=== PATIENT | female | born 1950 | race Caucasian/White ===

== ENCOUNTER 2018-03-31 18:44 | Outpatient (CLI) | payer OTHER | END 2018-03-31 18:45 | disposition short-term general hospital (02) | LOC: EMS 18:44 | PROVIDERS: ATTEND Surgery | DX: R10.9 Unspecified abdominal pain (principal) | CPT/HCPCS: A0425; A0427 ==

== ENCOUNTER 2018-06-07 10:18 | Outpatient (CLI) | payer OTHER ==
--- NOTE | 2018-06-07 12:23 | XRAY Report ---
Reason: PULMONARY NODULES NOTED ON LAST CT Procedure Date: 06/07/2018 Accession Number: [id number] / [id number] Procedure: XRN - Chest 2 View X-Ray CPT Code: 07216 FULL RESULT: EXAM: CHEST RADIOGRAPHY EXAM DATE: 06/07/2018 10:51 AM. CLINICAL HISTORY: Pulmonary nodules noted on last CT. COMPARISON: None. TECHNIQUE: 2 views. FINDINGS: Lungs/Pleura: No focal opacities evident. No pleural effusion. No pneumothorax. Normal volumes. Mediastinum: Heart and mediastinal contours are unremarkable. Other: None. IMPRESSION: The nodules identified by CT are not definitely seen on plain radiograph. Recommendation: General recommendations for nodules incidentally discovered on CT are as follows: Fleischner Society Recommendations 2017 MacMahon et al. Radiology 2017 Solid Nodules-Low Risk Patients: <6 mm (single or multiple) - No routine follow-up* 6-8 mm (single) -CT at 6-12 months, then consider CT at 18-24 months 6-8mm (multiple) -CT at 3-6 months, then consider at CT 18-24 months >8 mm (single) -Consider CT, PET/CT, or tissue sampling at 3 months >8 mm (multiple) -CT at 3-6 months, then consider CT at 18-24 months Solid Nodules-High Risk Patients: <6 mm (single or multiple) -Optional CT at 12 months* 6-8 mm (single) -CT at 6-12 months, then CT at 18-24 months 6-8mm (multiple) -CT at 3-6 months, then CT at 18-24 months >8 mm (single) -Consider CT, PET/CT, or tissue sampling at 3 months >8 mm (multiple) -CT at 3-6 months, then at 18-24 months *Nodules < 6mm do not require routine follow-up, but suspicious nodule morphology, upper lobe location, or both may warrant 12 month follow-up Subsolid nodules: <6 mm (single, GG or part solid) -No routine follow-up >=6 mm (single GG) -CT at 6-12 months to confirm, then CT q2 years until 5 years >=6 mm (single part solid) -CT at 3-6 months to confirm, if unchanged and solid <6mm, annual CT for 5 years <6 mm (multiple GG or part solid) -CT at 3-6 months. If stable, consider CT at 2 and 4 years >=6 mm (multiple GG or part solid) -CT at 3-6 months. Subsequent management based on most suspicious nodule(s). Consider follow-up at 2 and 4 years for certain suspicious nodules <6mm. If solid component develops or growth, consider resection. RADIA
== END 2018-06-07 10:19 | disposition home or self-care (01) ==
LOC: DI.N 10:18
PROVIDERS: ATTEND Family Medicine
DX: R91.8 Other nonspecific abnormal finding of lung field (principal)
CPT/HCPCS: 71046

== ENCOUNTER 2018-08-30 07:35 | Outpatient (CLI) | payer OTHER | END 2018-08-30 07:36 | disposition home or self-care (01) | LOC: DI 07:35 | PROVIDERS: ATTEND Family Medicine | DX: I48.91 Unspecified atrial fibrillation (principal); I51.7 Cardiomegaly; I35.1 Nonrheumatic aortic (valve) insufficiency | CPT/HCPCS: 93306 ==

== ENCOUNTER 2019-02-07 09:40 | Outpatient (CLI) | payer OTHER ==
[~2019-02-07 09:40] MED LIST: IOVERSOL 320 100 ML VIAL IVP ONE; IOVERSOL 320 50 ML VIAL ONE
--- NOTE | 2019-02-08 14:50 | CT Report ---
Reason: ABDOMINAL PAIN, DARRHEA Procedure Date: 02/07/2019 Accession Number: [id number] / [id number] Procedure: CT - Abdomen/Pelvis WO CPT Code: Final Report FULL RESULT: EXAM: CT ABDOMEN AND PELVIS (CT KUB) EXAM DATE: 02/07/2019 12:11 PM. CLINICAL HISTORY: ABDOMINAL PAIN, DARRHEA. COMPARISONS: None. TECHNIQUE: Routine axial helical CT imaging was performed through the abdomen and pelvis without IV contrast. Reconstructions: Coronal and sagittal. In accordance with CT protocol optimization, one or more of the following dose reduction techniques were utilized for this exam: automated exposure control, adjustment of mA and/or KV based on patient size, or use of iterative reconstructive technique. FINDINGS: Lung Bases: Unremarkable. Right Kidney/Ureter: A 3 cm oval-shaped hypodense lesion in the inferior pole of right kidney, most consistent with simple cyst. No stones, hydronephrosis, or hydroureter. No perinephric fat stranding. Left Kidney/Ureter: No stones, hydronephrosis, or hydroureter. No perinephric fat stranding. Other Solid Organs: Noncontrast images of the solid organs are grossly unremarkable. Gallbladder/Bile Ducts: Post cholecystectomy with clips in GB fossa. Peritoneal Cavity: No free fluid, free air or stephanie adenopathy. Bowel is grossly unremarkable. Moderate colonic diverticulosis noted involving sigmoid colon. Appendix not well visualized. Pelvic Organs: No bladder stones or wall thickening. Noncontrast images of the visualized pelvic organs are unremarkable. Vasculature: Unremarkable. Other: None. IMPRESSION: No urinary tract stones or obstruction. A 3 cm simple cyst inferior pole of right kidney. No other acute abdominal pathology. RADIA
== END 2019-02-07 09:41 | disposition home or self-care (01) ==
LOC: DI 09:40
PROVIDERS: ATTEND Family Medicine
DX: R10.9 Unspecified abdominal pain (principal); R19.7 Diarrhea, unspecified; N28.1 Cyst of kidney, acquired
CPT/HCPCS: 74176

== ENCOUNTER 2019-05-02 05:15 | Emergency (ER) | payer OTHER ==
--- NOTE | 2019-05-02 05:20 | ED Physician Documentation ---
PD HPI CHEST PAIN - Stated complaint Stated Complaint: CP/SOA - History obtained from History obtained from: Patient - History of Present Illness Timing - onset: Enter time (22:30), Last night Timing - details: Gradual onset Pain level now: 0 Quality: Pressure Location: Substernal, Left chest Radiation: Other (does not radiate) Improved by: Nothing Worsened by: No: Exertion, Inspiration, Eating, Movement, Palpation, Position Associated symptoms: No: Shortness of air, Diaphoresis, Nausea, Vomiting, Feeling faint / dizzy, General Weakness, Palpitations, Cough Recently seen: Not recently seen Review of Systems Constitutional: reports: Reviewed and negative Cardiac: reports: Chest pain / pressure, Palpitations Respiratory: reports: Reviewed and negative GI: reports: Reviewed and negative : denies: Dysuria, Frequency PD PAST MEDICAL HISTORY - Past Medical History Past Medical History: Yes Cardiovascular: Atrial fibrillation - Present Medications Home Medications: Ambulatory Orders Medication Instructions Recorded Confirmed Albuterol Sulf [Ventolin Hfa 2 puffs Q4H PRN 05/02/19 05/02/19 Inhaler] Atorvastatin Calcium [Lipitor] 1 tab DAILY 05/02/19 05/02/19 Beclomethasone 80 Mcg [Qvar 80] 2 puffs BID 05/02/19 05/02/19 Duloxetine HCl 60 mg PO DAILY 05/02/19 05/02/19 Famotidine 1 tab BID 05/02/19 05/02/19 Furosemide 1 tab DAILY 05/02/19 05/02/19 Furosemide [Lasix] 20 mg PO DAILY #30 tablet 05/02/19 Gabapentin [Neurontin] 1 tab TID 05/02/19 05/02/19 Levothyroxine Sodium 1 tab DAILY 05/02/19 05/02/19 Lisinopril [Zestril] 1 tab BID 05/02/19 05/02/19 Magnesium Oxide 1 tab DAILY 05/02/19 05/02/19 Metoprolol Succinate 25 mg PO DAILY 05/02/19 05/02/19 Nitroglycerin 1 tab Q5M PRN 05/02/19 05/02/19 Potassium Chloride 10 meq PO DAILY PM #30 tablet.er 05/02/19 Prochlorperazine Maleate 1 tab Q8HR PRN 05/02/19 05/02/19 Rivaroxaban [Xarelto] 1 tab DAILY 05/02/19 05/02/19 cloNIDine [Catapres] 1 tab BID 05/02/19 05/02/19 metFORMIN [Glucophage] 1 tab BID 05/02/19 05/02/19 - Allergies Allergies/Adverse Reactions: Allergies Allergy/AdvReac Type Severity Reaction Status Date / Time codeine Allergy Unknown Verified 05/02/19 05:30 iodine Allergy Unknown Verified 05/02/19 05:31 PD ED PE NORMAL - Vitals Vital signs reviewed: Yes - General General: Alert and oriented X 3, No acute distress, Well developed/nourished - Neck Neck: Supple, no meningeal sign - Cardiac Cardiac: No murmur - Respiratory Respiratory: No respiratory distress - Abdomen Abdomen: Soft, Non tender - Derm Derm: Normal color, Warm and dry - Extremities Extremities: No edema PD ED PE EXPANDED - Cardiac Cardiac: Tachy, Irregularly irregular Results - Vitals Vitals: Oxygen O2 Source Room air Oxygen Flow Rate 2 - EKG (time done) No standard instances Rate: Rate (enter#) (138), Tachy Rhythm: Atrial fibrillation [place]: Normal Ischemia: Normal ST segments - Labs Labs: Laboratory Tests 05/02/19 05/02/19 05/02/19 05:28 05:28 05:28 WBC 9.3 RBC 3.78 L Hgb 10.8 L Hct 35.2 L MCV 93.1 MCH 28.6 MCHC 30.7 L RDW 15.0 Plt Count 374 MPV 10.2 Neut # (Auto) 7.4 H Lymph # (Auto) 1.3 L [place] # (Auto) 0.4 Eos # (Auto) 0.1 Baso # (Auto) 0.0 Absolute Nucleated RBC 0.00 Nucleated RBC % 0.0 Sodium 139 Potassium 4.4 Chloride 103 Carbon Dioxide 25 Anion Gap 11.0 BUN 14 Creatinine 1.0 Estimated GFR (MDRD) 55 L Glucose 147 H Calcium 8.9 Total Bilirubin 1.0 AST 26 ALT 29 Alkaline Phosphatase 96 Troponin I High Sens 15.2 H* B-Natriuretic Peptide Total Protein 7.8 Albumin 4.1 Globulin 3.7 Albumin/Globulin Ratio 1.1 Lipase 23 Urine Color Urine Clarity Urine pH Ur Specific [place] Urine Protein Urine Glucose (UA) Urine Ketones Urine Occult Blood Urine Nitrite Urine Bilirubin Urine Urobilinogen Ur Leukocyte Esterase Urine RBC Urine WBC Ur Squamous Epith Cells Urine Bacteria Ur Microscopic Review Urine Culture Comments 05/02/19 05/02/19 05/02/19 05:28 09:19 11:02 WBC RBC Hgb Hct MCV MCH MCHC RDW Plt Count MPV Neut # (Auto) Lymph # (Auto) [place] # (Auto) Eos # (Auto) Baso # (Auto) Absolute Nucleated RBC Nucleated RBC % Sodium Potassium Chloride Carbon Dioxide Anion Gap BUN Creatinine Estimated GFR (MDRD) Glucose Calcium Total Bilirubin AST ALT Alkaline Phosphatase Troponin I High Sens 13.9 B-Natriuretic Peptide 730 H Total Protein Albumin Globulin Albumin/Globulin Ratio Lipase Urine Color YELLOW Urine Clarity CLEAR Urine pH 6.5 Ur Specific [place] 1.025 Urine Protein 100 H Urine Glucose (UA) NEGATIVE Urine Ketones NEGATIVE Urine Occult Blood NEGATIVE Urine Nitrite NEGATIVE Urine Bilirubin NEGATIVE Urine Urobilinogen 0.2 (NORMAL) Ur Leukocyte Esterase NEGATIVE Urine RBC 0-5 Urine WBC 4-5 Ur Squamous Epith Cells MOD Squamous H Urine Bacteria Rare Ur Microscopic Review INDICATED Urine Culture Comments NOT INDICATED - Rads (name of study) chest xray Radiology: Prelim report reviewed, See rad report PD MEDICAL DECISION MAKING - ED course Complexity details: reviewed results, re-evaluated patient, considered differential, d/w patient ED course: rate control achieved with 10 mg IV cardizem. d/w Dr. Beal, recommends increasing AM dose of metoprolol to 50 mg and maintain qpm dose of 25mg. Departure - Departure Disposition: 01 Home, Self Care Clinical Impression: Atrial fibrillation with RVR, Volume overload state of heart Condition: Stable Instructions: ED Afib, ED CHF General Follow-Up: Parrish Kirkland DO [Primary Care Provider] - Prescriptions: Furosemide [Lasix] 20 mg PO DAILY #30 tablet Potassium Chloride 10 meq PO DAILY PM #30 tablet.er Comments: Today we are asking you to restart your Lasix at 20 mg/day and take this 5 da ys/week if you have persistence of your shortness of breath or worsening of her shortness of breath get in and see Dr. Solis right away. While you are taking the Lasix take a potassium with each Lasix pill. Discharge Date/Time: 05/02/19 14:11
[2019-05-02] MEDS ORDERED: diltiaZEM INJ 5 MG/ML VIAL IVP STA ×2 (05:35→10:05)
[2019-05-02 05:39] LABS: BASOPHILS % (AUTO) 0.4 %; EOSINOPHILS # (AUTO) 0.1 10^3/uL (0.0-0.7); EOSINOPHILS % (AUTO) 1.3 %; HGB - HEMOGLOBIN 10.8 g/dL (12.0-16.0); LYMPHOCYTES # (AUTO) 1.3 10^3/uL (1.5-3.5); LYMPHOCYTES % (AUTO) 13.8 %; MEAN CORPUSCULAR HEMOGLOBIN 28.6 pg (27.0-31.0); MEAN CORPUSCULAR HGB CONC 30.7 g/dL (32.0-36.0); MEAN CORPUSCULAR VOLUME 93.1 fL (81.0-99.0); MEAN PLATELET VOLUME 10.2 fL (7.9-10.8); MONOCYTES # (AUTO) 0.4 10^3/uL (0.0-1.0); MONOCYTES % (AUTO) 4.1 %; NEUTROPHILS # (AUTO) 7.4 10^3/uL (1.5-6.6); NEUTROPHILS % (AUTO) 79.9 %; PLT - PLATELET COUNT 374 10^3/uL (130-450); RED BLOOD COUNT 3.78 10^6/uL (4.20-5.40); WHITE BLOOD COUNT 9.3 x10^3/uL (4.8-10.8)
[2019-05-02 05:49] LABS: ALBUMIN 4.1 g/dL (3.2-5.5); ALBUMIN/GLOBULIN RATIO 1.1 (1.0-2.2); CALCIUM 8.9 mg/dL (8.5-10.3); TOTAL PROTEIN 7.8 g/dL (6.7-8.2)
--- NOTE | 2019-05-02 05:55 | XRAY Report ---
Reason: chest pain Procedure Date: 05/02/2019 Accession Number: [id number] / [id number] Procedure: XR - Chest 1 View X-Ray CPT Code: 85156 Final Report FULL RESULT: EXAM: CHEST RADIOGRAPHY EXAM DATE: 05/02/2019 05:41 AM. CLINICAL HISTORY: Chest pain. COMPARISON: CHEST 2 VIEW 06/07/2018 10:51 AM. TECHNIQUE: 1 view. FINDINGS: Lungs/Pleura: Pulmonary vascular congestion. Small right and trace left pleural effusions. No pneumothorax. Mediastinum: Within exam limitations, heart size is upper normal. Other: None. IMPRESSION: 1. Borderline heart size with pulmonary vascular congestion. 2. Small right and trace left pleural effusions. RADIA
[2019-05-02] MEDS ORDERED: METOPROLOL TARTRATE 50 MG TABLET PO STA (09:09)
--- NOTE | 2019-05-02 10:06 | ED Physician Documentation ---
PD HPI CHEST PAIN - Stated complaint Stated Complaint: CP/SOA - Chief complaint Chief Complaint: Cardiac - History obtained from History obtained from: Patient, Family - History of Present Illness Timing - onset: Last night Timing - onset during: Rest Timing - duration: Hours Timing - details: Gradual onset, Still present Quality: Pressure Location: Left chest Radiation: Back Improved by: Rest, Oxygen Worsened by: Exertion Associated symptoms: Shortness of air, Feeling faint / dizzy. No: Diaphoresis, Nausea, Vomiting Similar symptoms before: No diagnosis Recently seen: Clinic - Additional information Additional information: 69-year-old female developed some chest pressure last night and she has begun to develop increasing shortness of breath. She is coming to the emergency department about 5 AM this morning with a rapid heart rate and shortness of breath. Accompanied by chest pain. Her chest pain has been present for more than 6 hours. She states that her and her had URI last week.He resolved his symptoms and she continued to get more and more short of breath. She recalls late in the visit that her director camp has taken her off of her Lasix about 2 weeks ago.She now relates that she has become more and more short of breath since then. This culminated this morning and she is come to the emergency department. Review of Systems Constitutional: reports: Myalgias. denies: Fever Eyes: denies: Decreased vision Ears: denies: Ear pain Nose: denies: Rhinorrhea / runny nose, Congestion Throat: denies: Sore throat Cardiac: reports: Chest pain / pressure, Palpitations. denies: Pedal edema, Calf pain Respiratory: reports: Dyspnea, Cough GI: denies: Nausea, Vomiting : denies: Dysuria PD PAST MEDICAL HISTORY - Past Medical History Cardiovascular: Hypertension, High cholesterol, Atrial fibrillation Respiratory: Asthma Endocrine/Autoimmune: Type 2 diabetes GI: GERD Psych: Depression Other Past Medical History: neuropathy - Present Medications Home Medications: Ambulatory Orders Medication Instructions Recorded Confirmed Albuterol Sulf [Ventolin Hfa 2 puffs Q4H PRN 05/02/19 05/02/19 Inhaler] Atorvastatin Calcium [Lipitor] 1 tab DAILY 05/02/19 05/02/19 Beclomethasone 80 Mcg [Qvar 80] 2 puffs BID 05/02/19 05/02/19 Duloxetine HCl 60 mg PO DAILY 05/02/19 05/02/19 Famotidine 1 tab BID 05/02/19 05/02/19 Furosemide 1 tab DAILY 05/02/19 05/02/19 Furosemide [Lasix] 20 mg PO DAILY #30 tablet 05/02/19 Gabapentin [Neurontin] 1 tab TID 05/02/19 05/02/19 Levothyroxine Sodium 1 tab DAILY 05/02/19 05/02/19 Lisinopril [Zestril] 1 tab BID 05/02/19 05/02/19 Magnesium Oxide 1 tab DAILY 05/02/19 05/02/19 Metoprolol Succinate 25 mg PO DAILY 05/02/19 05/02/19 Nitroglycerin 1 tab Q5M PRN 05/02/19 05/02/19 Potassium Chloride 10 meq PO DAILY PM #30 tablet.er 05/02/19 Prochlorperazine Maleate 1 tab Q8HR PRN 05/02/19 05/02/19 Rivaroxaban [Xarelto] 1 tab DAILY 05/02/19 05/02/19 cloNIDine [Catapres] 1 tab BID 05/02/19 05/02/19 metFORMIN [Glucophage] 1 tab BID 05/02/19 05/02/19 - Allergies Allergies/Adverse Reactions: Allergies Allergy/AdvReac Type Severity Reaction Status Date / Time codeine Allergy Unknown Verified 05/02/19 05:30 iodine Allergy Unknown Verified 05/02/19 05:31 - Social History Does the pt smoke?: No Smoking Status: Never smoker PD ED PE NORMAL - Vitals Vital signs reviewed: Yes (Tachycardic and hypertensive) - General General: Alert and oriented X 3, Well developed/nourished, Other (Pale lips and tachypnea at rest with an expression of anxiety.) - HEENT HEENT: Atraumatic, PERRL, EOMI - Cardiac Cardiac: Other (Fairly acutely irregular rate and rhythm without murmur) - Respiratory Respiratory: No respiratory distress, Other (Diminished breath sounds bilaterally) - Abdomen Abdomen: Soft, Non tender - Derm Derm: Normal color, Warm and dry, No rash - Extremities Extremities: No deformity, No edema - Neuro Neuro: Alert and oriented X 3, 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, No motor deficit, No sensory deficit, Normal speech Eye Opening: Spontaneous Motor: Obeys Commands Verbal: Oriented GCS Score: 15 - Psych Psych: Normal mood, Normal affect Results - Vitals Vitals: Vital Signs - 24 hr 05/02/19 05/02/19 05/02/19 05:22 05:56 06:08 Temperature 36.5 C Heart Rate 139 H 76 76 Respiratory 18 27 H 19 Rate Blood Pressure 149/113 H 124/83 H 153/84 H O2 Saturation 95 96 96 05/02/19 05/02/19 05/02/19 06:43 07:55 08:11 Temperature 36.7 C Heart Rate 82 86 103 H Respiratory 18 24 17 Rate Blood Pressure 151/93 H 150/118 H 157/90 H O2 Saturation 96 97 97 05/02/19 05/02/19 05/02/19 10:00 10:25 11:50 Temperature Heart Rate 94 50 L 57 L Respiratory 17 16 18 Rate Blood Pressure 170/114 H 94/80 112/71 O2 Saturation 99 94 91 L 05/02/19 12:13 Temperature Heart Rate 66 Respiratory 18 Rate Blood Pressure 132/54 H O2 Saturation 96 Oxygen O2 Source Room air Oxygen Flow Rate 2 - Labs Labs: Laboratory Tests 05/02/19 05/02/19 05/02/19 05:28 05:28 05:28 WBC 9.3 RBC 3.78 L Hgb 10.8 L Hct 35.2 L MCV 93.1 MCH 28.6 MCHC 30.7 L RDW 15.0 Plt Count 374 MPV 10.2 Neut # (Auto) 7.4 H Lymph # (Auto) 1.3 L [place] # (Auto) 0.4 Eos # (Auto) 0.1 Baso # (Auto) 0.0 Absolute Nucleated RBC 0.00 Nucleated RBC % 0.0 Sodium 139 Potassium 4.4 Chloride 103 Carbon Dioxide 25 Anion Gap 11.0 BUN 14 Creatinine 1.0 Estimated GFR (MDRD) 55 L Glucose 147 H Calcium 8.9 Total Bilirubin 1.0 AST 26 ALT 29 Alkaline Phosphatase 96 Troponin I High Sens 15.2 H* B-Natriuretic Peptide Total Protein 7.8 Albumin 4.1 Globulin 3.7 Albumin/Globulin Ratio 1.1 Lipase 23 Urine Color Urine Clarity Urine pH Ur Specific [place] Urine Protein Urine Glucose (UA) Urine Ketones Urine Occult Blood Urine Nitrite Urine Bilirubin Urine Urobilinogen Ur Leukocyte Esterase Urine RBC Urine WBC Ur Squamous Epith Cells Urine Bacteria Ur Microscopic Review Urine Culture Comments 05/02/19 05/02/1920 05:28 09:19 11:02 WBC RBC Hgb Hct MCV MCH MCHC RDW Plt Count MPV Neut # (Auto) Lymph # (Auto) [place] # (Auto) Eos # (Auto) Baso # (Auto) Absolute Nucleated RBC Nucleated RBC % Sodium Potassium Chloride Carbon Dioxide Anion Gap BUN Creatinine Estimated GFR (MDRD) Glucose Calcium Total Bilirubin AST ALT Alkaline Phosphatase Troponin I High Sens 13.9 B-Natriuretic Peptide 730 H Total Protein Albumin Globulin Albumin/Globulin Ratio Lipase Urine Color YELLOW Urine Clarity CLEAR Urine pH 6.5 Ur Specific [place] 1.025 Urine Protein 100 H Urine Glucose (UA) NEGATIVE Urine Ketones NEGATIVE Urine Occult Blood NEGATIVE Urine Nitrite NEGATIVE Urine Bilirubin NEGATIVE Urine Urobilinogen 0.2 (NORMAL) Ur Leukocyte Esterase NEGATIVE Urine RBC 0-5 Urine WBC 4-5 Ur Squamous Epith Cells MOD Squamous H Urine Bacteria Rare Ur Microscopic Review INDICATED Urine Culture Comments NOT INDICATED - Rads (name of study) chest Radiology: Prelim report reviewed (Impression: 1. Borderline heart size with pulmonary vascular congestion. 2. Small right and trace left pleural effusions.), EMP read indepedently, See rad report PD MEDICAL DECISION MAKING - ED course Complexity details: reviewed old records, reviewed results, re-evaluated patient, considered differential, d/w patient, d/w family ED course: 69-year-old female with a history of atrial fibrillation has recently stopped her Lasix and is now more short of breath and has chest pain. She is found to be in atrial fibrillation with a rapid ventricular response and she is given a dose of diltiazem 10 mg intravenously which slows her heart rate down to about 105. She continues to have symptoms of shortness of breath and she is given a dose of metoprolol at the direction of her director camp. She still has tachycardia and dyspnea and she is given a second dose of diltiazem at this time 20 mg and has a rapid reduction in her heart rate into the 40s. She does have some long sinus pauses as well with this. She is found to be volume overloaded and a dose of Lasix is given intravenously. She has marked improvement in her ability to breathe and her heart rate and blood pressure come into normal range. She feels much improved. I come come back into her room she is now sitting up smiling and laughing. I have called Dr. Solis back again reviewed her case with him and he recommends restarting her Lasix at 20 mg/day 5 days/week and have her follow-up with him. Departure - Departure Disposition: 01 Home, Self Care Clinical Impression: Atrial fibrillation with RVR, Volume overload state of heart Condition: Stable Instructions: ED Afib, ED CHF General Follow-Up: Parrish Kirkland DO [Primary Care Provider] - Prescriptions: Furosemide [Lasix] 20 mg PO DAILY #30 tablet Potassium Chloride 10 meq PO DAILY PM #30 tablet.er Comments: Today we are asking you to restart your Lasix at 20 mg/day and take this 5 days/week if you have persistence of your shortness of breath or worsening of her shortness of breath get in and see Dr. Solis right away. While you are taking the Lasix take a potassium with each Lasix pill.
[2019-05-02 11:07] LABS: BILIRUBIN,URINE NEGATIVE (NEGATIVE); GLUCOSE, URINE (UA) NEGATIVE (NEGATIVE); KETONES,URINE (UA) NEGATIVE (NEGATIVE); LEUKOCYTE ESTERASE, URINE NEGATIVE (NEGATIVE); NITRITE,URINE NEGATIVE (NEGATIVE); OCCULT BLOOD,URINE NEGATIVE (NEGATIVE); PH,URINE 6.5 PH (5.0-7.5); PROTEIN,URINE 100 mg/dL (NEGATIVE); UROBILINOGEN,URINE 0.2 (NORMAL) E.U./dL (NORMAL)
[2019-05-02 11:08] LABS: CLARITY,URINE CLEAR (CLEAR)
[2019-05-02 11:25] LABS: BACTERIA,URINE Rare /HPF (None Seen); RBC,URINE 0-5 /HPF (0-5); SQUAMOUS EPITHELIAL CELL,UR MOD Squamous (<= Few)
[2019-05-02] MEDS ORDERED: FUROSEMIDE 40 MG/4 ML VIAL IVP STA (11:36)
[2019-05-02 14:09] VITALS: BP 154/93
== END 2019-05-02 14:11 | disposition home or self-care (01) ==
LOC: ED 05:15
DX: I48.91 Unspecified atrial fibrillation (principal); E87.70 Fluid overload, unspecified
CPT/HCPCS: 36415; 71045; 80053; 81001; 83690; 83880; 84484; 85025; 93005; 96374; 96375; 96376; 99284; A9270; 81003; 87086

== ENCOUNTER 2019-05-07 03:20 | Outpatient (CLI) | payer OTHER | END 2019-05-07 03:21 | disposition critical access hospital (66) | LOC: EMS 03:20 | PROVIDERS: ATTEND Surgery | DX: R07.9 Chest pain, unspecified (principal); R06.02 Shortness of breath | CPT/HCPCS: A0425; A0427 ==

== ENCOUNTER 2019-05-07 03:35 | Emergency (ER) | payer OTHER ==
[2019-05-07] MEDS ORDERED: METOPROLOL TARTRATE 50 MG TABLET PO STA (03:49)
--- NOTE | 2019-05-07 04:05 | XRAY Report ---
Reason: Chest Pain Procedure Date: 05/07/2019 Accession Number: [id number] / [id number] Procedure: XR - Chest 1 View X-Ray CPT Code: 35285 Final Report FULL RESULT: EXAM: CHEST RADIOGRAPHY EXAM DATE: 05/07/2019 03:59 AM. CLINICAL HISTORY: Chest Pain. COMPARISON: CHEST 1 VIEW 05/02/2019 5:27 AM. TECHNIQUE: 1 view. FINDINGS: The mediastinal silhouette is normal. The heart is borderline enlarged. There is mild pulmonary vascular congestion, unchanged. No focal consolidation, pleural effusion, or pneumothorax is seen. The osseous thorax is intact. IMPRESSION: Unchanged mild pulmonary vascular congestion. Borderline cardiomegaly. RADIA
[2019-05-07 04:09] LABS: BASOPHILS % (AUTO) 0.5 %; EOSINOPHILS # (AUTO) 0.2 10^3/uL (0.0-0.7); EOSINOPHILS % (AUTO) 2.4 %; HGB - HEMOGLOBIN 9.9 g/dL (12.0-16.0); LYMPHOCYTES % (AUTO) 16.9 %; MEAN CORPUSCULAR HEMOGLOBIN 29.3 pg (27.0-31.0); MEAN CORPUSCULAR HGB CONC 31.3 g/dL (32.0-36.0); MEAN CORPUSCULAR VOLUME 93.5 fL (81.0-99.0); MONOCYTES # (AUTO) 0.3 10^3/uL (0.0-1.0); MONOCYTES % (AUTO) 4.7 %; NEUTROPHILS # (AUTO) 4.6 10^3/uL (1.5-6.6); NEUTROPHILS % (AUTO) 75.2 %; PLT - PLATELET COUNT 273 10^3/uL (130-450); RED BLOOD COUNT 3.38 10^6/uL (4.20-5.40); RED CELL DISTRIBUTION WIDTH 15.3 % (12.0-15.0); WHITE BLOOD COUNT 6.2 x10^3/uL (4.8-10.8)
[2019-05-07 04:18] LABS: INR 2.2 (0.8-1.2); PT - PROTHROMBIN TIME 23.9 secs (9.9-12.6)
[2019-05-07 04:31] LABS: ALBUMIN 3.7 g/dL (3.2-5.5); ALBUMIN/GLOBULIN RATIO 1.1 (1.0-2.2); BILIRUBIN,TOTAL 1.1 mg/dL (0.2-1.0); CALCIUM 8.9 mg/dL (8.5-10.3); CREATININE 0.9 mg/dL (0.4-1.0); TOTAL PROTEIN 7.2 g/dL (6.7-8.2)
--- NOTE | 2019-05-07 04:38 | ED Physician Documentation ---
PD HPI CHEST PAIN - Stated complaint Stated Complaint: CP/SOA - Chief complaint Chief Complaint: Cardiac - History obtained from History obtained from: Patient, Family - History of Present Illness Timing - onset: Today, Other (3AM) Timing - details: Abrupt onset Pain level max: 6 Pain level now: 0 Quality: Sharp Location: Substernal Improved by: Nothing Associated symptoms: Shortness of air, Palpitations Similar symptoms before: Diagnosis (Atrial fibrillation with rapid ventricular response) - Additional information Additional information: 69-year-old female with history of chronic atrial fibrillation on metoprolol and Xarelto, who presented to the emergency department because of acute onset of chest discomfort, shortness of breath and palpitations. She reported that this pain started at 3 AM and it woke her up. When EMS arrived, patient was found to be in atrial fibrillation with rapid ventricular response at a rate of 150. Patient was given 18 mg of diltiazem and her heart rate improved. Currently her heart rates are in the 60s to 80s. Patient remained in atrial fibrillation but currently, patient denies any chest pain or shortness of breath or palpitations. Patient was seen in the emergency department for similar complaints on May 02, 2019. After discussion with Dr. Beal, Patient's wine cellar stock clerk. Patient was instructed to take metoprolol 50 mg in the morning and 25 mg at night. Patient had an echocardiogram in 08/2018 that showed normal EF (60-65%) with no regional wall abnormality, Moderate LA dilation, normal systolic function, no no pulmonary hypertension. Review of Systems Constitutional: denies: Fever, Chills Eyes: denies: Loss of vision Ears: denies: Loss of hearing, Ear pain Nose: denies: Rhinorrhea / runny nose, Congestion Cardiac: reports: Palpitations. denies: Chest pain / pressure Respiratory: reports: Dyspnea GI: denies: Abdominal Pain, Abdominal Swelling Musculoskeletal: denies: Neck pain, Back pain, Extremity pain, Joint pain Neurologic: denies: Generalized weakness, Focal weakness, Numbness, Difficulty speaking PD PAST MEDICAL HISTORY - Past Medical History Cardiovascular: Atrial fibrillation Respiratory: Asthma Endocrine/Autoimmune: Type 2 diabetes GI: GERD Psych: Depression - Present Medications Home Medications: Ambulatory Orders Medication Instructions Recorded Confirmed Albuterol Sulf [Ventolin Hfa 2 puffs Q4H PRN 05/02/19 05/02/19 Inhaler] Atorvastatin Calcium [Lipitor] 1 tab DAILY 05/02/19 05/02/19 Beclomethasone 80 Mcg [Qvar 80] 2 puffs BID 05/02/19 05/02/19 Duloxetine HCl 60 mg PO DAILY 05/02/19 05/02/19 Famotidine 1 tab BID 05/02/19 05/02/19 Furosemide 1 tab DAILY 05/02/19 05/02/19 Furosemide [Lasix] 20 mg PO DAILY #30 tablet 05/02/19 Gabapentin [Neurontin] 1 tab TID 05/02/19 05/02/19 Levothyroxine Sodium 1 tab DAILY 05/02/19 05/02/19 Lisinopril [Zestril] 1 tab BID 05/02/19 05/02/19 Magnesium Oxide 1 tab DAILY 05/02/19 05/02/19 Metoprolol Succinate 25 mg PO DAILY 05/02/19 05/02/19 Nitroglycerin 1 tab Q5M PRN 05/02/19 05/02/19 Potassium Chloride 10 meq PO DAILY PM #30 tablet.er 05/02/19 Prochlorperazine Maleate 1 tab Q8HR PRN 05/02/19 05/02/19 Rivaroxaban [Xarelto] 1 tab DAILY 05/02/19 05/02/19 cloNIDine [Catapres] 1 tab BID 05/02/19 05/02/19 metFORMIN [Glucophage] 1 tab BID 05/02/19 05/02/19 - Allergies Allergies/Adverse Reactions: Allergies Allergy/AdvReac Type Severity Reaction Status Date / Time codeine Allergy Unknown Verified 05/02/19 05:30 iodine Allergy Unknown Verified 05/02/19 05:31 - Social History Does the pt smoke?: No Smoking Status: Never smoker PD ED PE NORMAL - Vitals Vital signs reviewed: Yes - General General: Alert and oriented X 3 - HEENT HEENT: Atraumatic - Neck Neck: Supple, no meningeal sign - Cardiac Cardiac: Other (irregularly irregular) - Respiratory Respiratory: No respiratory distress, Clear bilaterally - Abdomen Abdomen: Normal bowel sounds - Back Back: No CVA TTP - Derm Derm: Normal color - Extremities Extremities: No deformity, No tenderness to palpate, Normal ROM s pain, No edema, No calf tenderness / cord - Neuro Neuro: Alert and oriented X 3, creative manager 2-12 intact, No motor deficit, No sensory deficit, Normal speech Eye Opening: Spontaneous Motor: Obeys Commands Verbal: Oriented GCS Score: 15 Results - Vitals Vitals: Vital Signs - 24 hr 05/07/19 05/07/19 05/07/19 03:40 04:22 05:16 Temperature 36.4 C L Heart Rate 67 71 66 Respiratory 15 14 18 Rate Blood Pressure 128/67 134/82 H 140/78 H O2 Saturation 94 93 94 05/07/19 05/07/19 05/07/19 05:30 06:02 08:00 Temperature Heart Rate 70 68 86 Respiratory 16 18 16 Rate Blood Pressure 109/76 132/93 H 139/111 H O2 Saturation 80 L 98 97 05/07/19 08:43 Temperature 36.4 C L Heart Rate 80 Respiratory 16 Rate Blood Pressure 145/94 H O2 Saturation 99 Oxygen O2 Source Nasal cannula Oxygen Flow Rate 2 - EKG (time done) 0348 Rate: Rate (enter#) (67) Rhythm: Atrial fibrillation Intervals: Prolonged QT QRS: Normal Ischemia: Non specific changes Compare to prior EKG: Unchanged from prior EKG 0537 Rate: Rate (enter#) (73) Rhythm: Atrial fibrillation [place]: Normal QRS: Normal Ischemia: Non specific changes Compare to prior EKG: Unchanged from prior EKG - Labs Labs: Laboratory Tests 05/07/19 05/07/19 05/07/19 03:55 03:55 03:55 WBC 6.2 RBC 3.38 L Hgb 9.9 L Hct 31.6 L MCV 93.5 MCH 29.3 MCHC 31.3 L RDW 15.3 H Plt Count 273 MPV 10.0 Neut # (Auto) 4.6 Lymph # (Auto) 1.0 L [place] # (Auto) 0.3 Eos # (Auto) 0.2 Baso # (Auto) 0.0 Absolute Nucleated RBC 0.00 Nucleated RBC % 0.0 PT 23.9 H INR 2.2 H Sodium 138 Potassium 4.0 Chloride 104 Carbon Dioxide 24 Anion Gap 10.0 BUN 11 Creatinine 0.9 Estimated GFR (MDRD) 62 L Glucose 136 H Calcium 8.9 Total Bilirubin 1.1 H AST 18 ALT 20 Alkaline Phosphatase 76 Troponin I High Sens B-Natriuretic Peptide Total Protein 7.2 Albumin 3.7 Globulin 3.5 Albumin/Globulin Ratio 1.1 Lipase 19 L 05/07/19 05/07/19 05/07/19 03:55 03:55 06:00 WBC RBC Hgb Hct MCV MCH MCHC RDW Plt Count MPV Neut # (Auto) Lymph # (Auto) [place] # (Auto) Eos # (Auto) Baso # (Auto) Absolute Nucleated RBC Nucleated RBC % PT INR Sodium Potassium Chloride Carbon Dioxide Anion Gap BUN Creatinine Estimated GFR (MDRD) Glucose Calcium Total Bilirubin AST ALT Alkaline Phosphatase Troponin I High Sens 23.1 H* 59.9 H* B-Natriuretic Peptide 424 H Total Protein Albumin Globulin Albumin/Globulin Ratio Lipase PD MEDICAL DECISION MAKING - ED course Complexity details: d/w insolvency consultant ED course: 69 year old female presents to the emergency department because of acute onset of chest pain. She was found to be in atrial fibrillation with rapid ventricular response. Patient was given Cardizem with improvement. Patient was given metoprolol PO. Her heart rate remained less than 100. She had a brief episode of chest pain and repeat EKG showed atrial fibrillation without dynamic changes. 2nd troponin was elevated when compared to the first. With intermittent chest pains, case was discussed with Dr. Funze, director of teacher education wine cellar stock clerk for Dr. Beal and he recommended the patient to be transferred to [facility] to be admitted to the hospitalist's service and cardiology will consult. Spoke with Dr. Barton, hospitalist and he has accepted the patient for transfer. Departure - Departure Disposition: 02 Transfer Acute Care Hosp Clinical Impression: Chest pain, Atrial fibrillation with RVR, NSTEMI (non-ST elevated myocardial infarction) Condition: Stable
[2019-05-07] MEDS ORDERED: ASPIRIN CHEW 81 MG TABLET PO STA (07:42)
[2019-05-07 08:45] VITALS: BP 145/94
== END 2019-05-07 09:00 | disposition short-term general hospital (02) ==
LOC: EDUNIT# → ED 03:35
DX: I21.4 Non-ST elevation (NSTEMI) myocardial infarction (principal); I48.91 Unspecified atrial fibrillation; E11.9 Type 2 diabetes mellitus without complications; Z79.84 Long term (current) use of oral hypoglycemic drugs; Z79.01 Long term (current) use of anticoagulants
CPT/HCPCS: 36415; 71045; 80053; 83690; 83880; 84484; 85025; 85610; 93005; 99284; 99285; A9270

== ENCOUNTER 2019-05-07 08:58 | Outpatient (CLI) | payer OTHER | END 2019-05-07 08:59 | disposition short-term general hospital (02) | LOC: EMS 08:58 | PROVIDERS: ATTEND Surgery | DX: I21.4 Non-ST elevation (NSTEMI) myocardial infarction (principal) | CPT/HCPCS: A0425; A0427 ==

== ENCOUNTER 2020-08-08 10:42 | Outpatient (CLI) | payer OTHER ==
[2020-08-08] MEDS ORDERED: IOVERSOL 320 100 ML VIAL IVP ONE ×2 (11:02→12:24)
[2020-08-08] MEDS ORDERED: IOPAMIDOL-300 50 ML VIAL ONE (11:02)
[2020-08-08 11:12] LABS: CREATININE 1.3 mg/dL (0.4-1.0)
[2020-08-08] MEDS ORDERED: IOPAMIDOL-300 50 ML VIAL PO ONE (12:25)
--- NOTE | 2020-08-08 13:39 | CT Report ---
PROCEDURE: Abdomen/Pelvis W INDICATIONS: EPIGASTRIC AND LOWER ABD PAIN CONTRAST: IV CONTRAST: Optiray 320 ml: 100 PO CONTRAST: Isovue 300 ml50 TECHNIQUE: After the administration of IV and oral contrast, 5 mm thick sections acquired from the diaphragms to the symphysis. 5 mm thick coronal and sagittal reformats were acquired. For radiation dose reducti on, the following was used: automated exposure control, adjustment of mA and/or kV according to ghazal ent size. COMPARISON: 02/07/2019. FINDINGS: Image quality: Excellent. ABDOMEN: Lung bases: 6 mm calcified granuloma in posterior aspect of right lung base is seen. Lung bases are otherwise clear. Heart size is normal. Solid organs: Liver and spleen are normal in size and enhancement. Gallbladder is surgically absent . Biliary system is non dilated. Pancreas enhances normally. No adrenal nodules. Kidneys demonstr ate normal size and enhancement, without hydronephrosis. 3.2 x 2.6 cm lower pole right renal cyst is seen. Peritoneum and bowel: Bowel loops demonstrate normal wall thickness and caliber. No free fluid or a ir. Fecal stasis throughout the colon is seen. Sigmoid diverticulosis is noted, no CT evidence of ac teller diverticulitis. Appendix is not visualized. Nodes and vessels: No retroperitoneal or mesenteric adenopathy by size criteria. Aorta and inferior vena cava are normal in size. Miscellaneous: No ventral hernias. PELVIS: Genitourinary: Bladder wall thickness is normal. Miscellaneous: No inguinal hernias or adenopathy. Bones: No suspicious bony lesions. No vertebral body compression fractures. Degenerative disc dise ase in mid to lower lumbar spine is seen. IMPRESSION: 1. Mild constipation. No bowel obstruction or abnormal bowel wall thickening. No free fluid or free a ir. Sigmoid diverticulosis without evidence of acute diverticulitis. 2. Right renal cyst as above, not significantly changed from prior study. No renal stone or hydroneph rosis. 3. Stable calcified granuloma at right lung base. Reviewed by: Kodak Mckinney MD on 08/08/2020 1:38 PM PDT Approved by: Kodak Mckinney MD on 08/08/2020 1:38 PM PDT Station ID: [id number]
== END 2020-08-08 10:43 | disposition home or self-care (01) ==
LOC: DI 10:42
PROVIDERS: ATTEND Family Medicine
DX: K59.00 Constipation, unspecified (principal); R10.13 Epigastric pain; R10.30 Lower abdominal pain, unspecified; M54.5 Low back pain; K57.30 Diverticulosis of large intestine without perforation or abscess without bleeding; N28.1 Cyst of kidney, acquired; J84.10 Pulmonary fibrosis, unspecified
CPT/HCPCS: 36415; 74177; 82565; Q9967

== ENCOUNTER 2022-10-03 22:53 | Outpatient (CLI) | payer OTHER | END 2022-10-03 23:59 | disposition short-term general hospital (02) | LOC: EMS 22:53 | DX: R41.0 Disorientation, unspecified (principal); R53.1 Weakness; R53.83 Other fatigue; R05.9 Cough, unspecified; R39.198 Other difficulties with micturition; R06.02 Shortness of breath; R06.2 Wheezing | CPT/HCPCS: A0425; A0429 ==

== ENCOUNTER 2022-10-20 04:21 | Outpatient (CLI) | payer OTHER | END 2022-10-20 23:59 | disposition short-term general hospital (02) | LOC: EMS 04:21 | DX: R41.82 Altered mental status, unspecified (principal); R09.02 Hypoxemia; R06.89 Other abnormalities of breathing; R25.1 Tremor, unspecified | CPT/HCPCS: A0425; A0427 ==